=== PATIENT | female | born 1975 | race Caucasian/White ===

== ENCOUNTER 2018-10-28 11:50 | Emergency (ER) | payer MEDICAID, OTHER ==
[~2018-10-28] VITALS: Ht 157.5 cm; Wt 79.0 kg
[~2018-10-28 11:50] MED LIST: CELEBREX; CEPH-443 PO; HYDR-4011 PO; NAPR-985 PO; NAPROSYN
[2018-10-28 11:51] VITALS: Ht 157.5 cm; Wt 79.0 kg
[2018-10-28] MEDS ORDERED: ONDANSETRON (ODT) 4 MG TAB ODT STA (12:05)
[2018-10-28] MEDS ORDERED: HYDROCODONE/APAP (5/325) TAB PO ONE (12:30)
--- NOTE | 2018-10-28 14:45 | ERD ---
ER Documentation Chief Complaint Chief Complaint S/P [facility] HAS LEFT SHOULDER PAIN HPI 43-year-old female presenting with right elbow and shoulder pain. Patient fell in a parking lot. She is right-hand dominant. Denies any numbness or tingling. This just happened has not taken any medications for the injury. Denies other medical problems. NKDA. Surgical history denies. Social history no ROS All systems reviewed and are negative except as per history of present illness. Medications Home Meds Active Scripts Naproxen* (Naprosyn*) 500 Mg Tablet, 500 MG PO BID PRN for PAIN AND/OR INFLAMMATION, #30 TAB Prov:JUAN FRANCISCO RAY PA-C 10/28/18 Hydrocodone/Acetaminophen (Henderson 5-325 Tablet) 1 Each Tablet, 1 TAB PO Q6H PRN for PAIN, #7 TAB Prov:JUAN FRANCISCO RAY PA-C 10/28/18 Reported Medications Cephalexin* (Keflex*) 500 Mg Capsule, 500 MG PO Q6 12/09/12 [Naprosyn] No Conflict Check 11/27/12 [Celebrex] No Conflict Check 11/27/12 Allergies Allergies: Coded Allergies: No Known Drug Allergy (Verified Allergy, Unknown, 12/09/12) PMhx/Soc History of Surgery: No Anesthesia Reaction: No Hx Neurological Disorder: No Hx Respiratory Disorders: No Hx Cardiac Disorders: No Hx Psychiatric Problems: No Hx Miscellaneous Medical Probl: Yes (ARTHRITIS) Hx Alcohol Use: No Hx Substance Use: No Hx Tobacco Use: No Smoking Status: Never smoker FmHx Family History: No diabetes, No coronary disease, No other Physical Exam Vitals Vital Signs Date Temp Pulse Resp B/P (MAP) Pulse Ox O2 O2 Flow FiO2 Time Delivery Rate 10/28/18 98.1 87 18 117/78 99 11:51 (91) Physical Exam GENERAL: The patient is well-appearing, well-nourished, in no acute distress HEENT: Atraumatic. Conjunctivae are pink. Pupils equal, round, and reactive to light. There is no scleral icterus. Tympanic membranes clear bilaterally. Oropharynx clear. CHEST: Clear to auscultation bilaterally. There are no rales, wheezes or rhonchi. HEART: Regular rate and rhythm. No murmurs, clicks, rubs or gallops. EXTREMITIES: Tender to palpation to the right elbow and questionable tenderness to the proximal humerus. Patient is unable to flex and extend at the elbow due to pain. NEUROLOGIC: Alert and oriented. Cranial nerves II through XII intact. Motor strength in all 4 extremities with 5 out of 5 strength. Sensation grossly intact. SKIN: Abrasion noted to the right elbow with mild swelling. Results 24 hrs Laboratory Tests Test 10/28/18 13:53 POC Beta HCG, Qualitative NEGATIVE Current Medications Medications Dose Sig/Roxanne Start Time Status Last (Trade) Ordered Route PRN Stop Time Admin Dose Reason Admin 1 tab ONCE ONCE 10/28/18 DC 10/28/18 Acetaminophen PO 12:30 10/28/18 12:09 / 12:31 Hydrocodone Bitart (Henderson (5/325)) Ondansetron 4 mg ONCE STAT 10/28/18 DC 10/28/18 HCl (Zofran ODT 12:05 10/28/18 12:10 Odt) 12:06 Procedures/MDM DIAGNOSTIC IMAGING REPORT Patient: ROYER NIELSEN : 1975 Age: 43 Sex: F MR #: [id number] DOS: 10/28/18 1328 Ordering MD: NERI RAY PA-C Location: [facility] Room/Bed: PROCEDURE: CT RIGHT ARM CLINICAL INDICATION: Fracture TECHNIQUE: CT scan of the right arm was performed on a multi -slice scanner. No IV contrast was administered. Coronal and sagittal reformatted images were obtained from the axial source images. The total exam DLP equals 917.8 mGy-cm. The CDTI volume was 36.62 mGy. One or more of the following dose reduction techniques were used: - Automated exposure control. - Adjustment of the mA and/or kV according to patient size . - Use of iterative reconstruction technique. Images were reviewed on a high-resolution PACS workstation. Dicom images are available. 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 No aggressive appearing periosteal reaction detected. Acute, comminuted, mildly displaced and intra-articular fractures of the distal humerus, predominately involving the medial humeral condyle (axial image 108). Acute, comminuted and mildly displaced fractures of the posterior olecranon are also present (series 6 01 image 109) with intra-articular extension. Suspect minimally-displaced fracture of the lateral aspect of the radial head (series 6 01 image 78 and series 3 image 117). No dislocation of the joint space. Large joint effusion and severe soft tissue swelling at the fracture sites. IMPRESSION: Acute, mildly displaced, intra-articular fractures of the distal humerus, the olecranon, and probably the lateral aspect of the radial head, as above. Large joint effusion and soft tissue swelling. 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 DIAGNOSTIC IMAGING REPORT Patient: ROYER NIELSEN : 1975 Age: 43 Sex: F MR #: [id number] DOS: 10/28/18 1200 Ordering MD: NERI RAY PA-C Location: [facility] Room/Bed: PROCEDURE: XR Elbow. CLINICAL INDICATION: Pain TECHNIQUE: AP, lateral and oblique views of the right elbow performed. COMPARISON: None. FINDINGS: There is a moderately displaced fracture of the right distal humerus, extending to the elbow joint. There is patchy lucency involving the right distal humerus. The findings are suspicious for a possible pathologic fracture. In addition there is a mixed lucent and sclerotic lesion in the right distal humeral diaphysis, measuring 4.3 x 2.2 cm. RPTAT: AA IMPRESSION: Moderately displaced fracture of the right distal humerus, extending to the elbow joint. Patchy ill-defined lucency in the right distal humerus, may represent a pathologic fracture. Underlying neoplasm cannot be excluded. In addition there is a mixed lucent and sclerotic lesion in the right distal humeral diaphysis measuring up to 4.3 cm. Follow-up CT is recommended for further evaluation. DIAGNOSTIC IMAGING REPORT Patient: ROYER NIELSEN : 1975 Age: 43 Sex: F MR #: [id number] DOS: 10/28/18 1200 Ordering MD: NERI RAY PA-C Location: [facility] Room/Bed: PROCEDURE: XR right shoulder. CLINICAL INDICATION: Pain TECHNIQUE: Axillary, Internal and external rotation views of the right shoulder were performed. COMPARISON: None. FINDINGS: There are mild degenerative changes involving the acromioclavicular joint with joint space narrowing. There is normal osseous mineralization and alignment. No acute fracture is identified. The soft tissues are unremarkable. RPTAT: AA IMPRESSION: Mild degenerative changes of the acromioclavicular joint. ER Course: Long-arm splint applied to right upper extremity deep. Neuro intact pre-and post splint application. MDM: 43-year-old female presenting with pain to right elbow. I have low suspicion for tendon or ligament rupture. Patient does have findings of fracture we recommend to follow-up with orthopedist. Patient has a lucency noted within the bone which is leading to a pathological fracture. We have low suspicion for malignancy at this time however patient is recommended to follow- up with orthopedist for further evaluation. This case was discussed with Dr. Carranza prior to discharge. Patient is told symptoms change or worsen to return immediately to the ER. All questions answered at discharge Departure Diagnosis: Primary Impression: Elbow fracture Condition: Stable Patient Instructions: Elbow Fracture Referrals: [facility] YOU HAVE RECEIVED A MEDICAL SCREENING EXAM AND THE RESULTS INDICATE THAT YOU DO NOT HAVE A CONDITION THAT REQUIRES URGENT TREATMENT IN THE EMERGENCY DEPARTMENT. FURTHER EVALUATION AND TREATMENT OF YOUR CONDITION CAN WAIT UNTIL YOU ARE SEEN IN YOUR DOCTORS OFFICE WITHIN THE NEXT 1-2 DAYS. IT IS YOUR RESPONSIBILITY TO MAKE AN APPOINTMENT FOR FOLOW-UP CARE. IF YOU HAVE A PRIMARY DOCTOR --you should call your primary doctor and schedule an appointment IF YOU DO NOT HAVE A PRIMARY DOCTOR YOU CAN CALL OUR PHYSICIAN REFERRAL HOTLINE AT IF YOU CAN NOT AFFORD TO SEE A PHYSICIAN YOU CAN CHOSE FROM THE FOLLOWING [facility] [address] [facility]. [facility] [address] [facility]. [facility] [address] [facility]. [facility] [address] [facility]. [facility] [address] [facility]. [facility]. [address] Additional Instructions: FOLLOW UP WITH YOUR PRIMARY CARE PHYSICIAN TOMORROW.Return to this facility if you are not improving as expected. JUAN FRANCISCO RAY PA-C Oct 28, 2018 14:45
[2018-10-28 15:11] VITALS: BP 108/74; PULSE 60; RESP 18
== END 2018-10-28 15:12 | disposition home or self-care (01) ==
LOC: FTE 11:50
DX: S42.401A Unspecified fracture of lower end of right humerus, initial encounter for closed fracture (principal); W18.30XA Fall on same level, unspecified, initial encounter; Y92.481 Parking lot as the place of occurrence of the external cause
CPT/HCPCS: 29105; 73030; 73080; 73200; 81025; Z7502; Z7610